=== PATIENT | female | born 1980 | race Caucasian/White ===

== ENCOUNTER 2023-06-12 10:18 | Outpatient (CLI) | payer OTHER ==
[2023-06-12 11:14] LABS: URINE APPEARANCE Clear; URINE BILIRRUBIN Negative (NEGATIVE); URINE BLOOD Negative; URINE COLOR Yellow; URINE GLUCOSE Negative (NEGATIVE); URINE LEUKOCYTE Negative; URINE NITRATE Negative; URINE PROTEIN Negative (NEGATIVE); URINE UROBILINOGEN 0.2 E.U./dl
[2023-06-12 11:15] LABS: URINE BACTERIA 428.3 uL (0.0-1933); URINE EPITHELIAL CELLS 14.5 uL (0.0-38.8); URINE RBC 5.1 uL (0.0-20.8); URINE WBC 14.6 uL (0.0-23.2)
[2023-06-12 11:33] LABS: ALBUMIN 3.5 gm/dL (3.4-5.0); BILIRUBIN TOTAL 0.23 mg/dL (0.3-1.2); CALCIUM 8.8 mg/dL (8.5-10.1); CREATININE SERUM 0.91 mg/dL (0.55-1.02); GFR 67.47; GLOBULINA 3.4 G/DL (2.4-3.5); POTASSIUM 4.23 mEq/L (3.5-5.1); TOTAL PROTEIN 6.9 gm/dL (6.4-8.2)
[2023-06-12 11:36] LABS: HEMATOCRIT 35.4 % (36.0-45.00); HEMOGLOBIN 11.5 g/dL (12.0-15.00); MEAN CELL VOLUME 75.8 fL (80.00-100.00); MEAN CORPUSCULAR HEMOGLOBIN 24.6 pg (27.00-32.0); MEAN CORPUSCULAR HGB CONC 32.5 g/dl (32.0-36.0); PLATELET COUNT 372 K/uL (150-450); RED BLOOD COUNT 4.67 M/uL (4.00-6.00)
[2023-06-12 12:14] LABS: CHOL HDL RATIO 5.2 (0-5.0); T4 TOTAL 5.02 UG/DL (4.8-13.9); TSH 2.23 uIU/mL (0.358-3.74)
[2023-06-12 12:34] LABS: RED CELL DISTRIBUTION WIDTH 29.9 % (11.5-14.5)
[2023-06-13 12:41] LABS: T3 TOTAL 0.915 ng/ml (0.846-2.02); VITAMIN D3 25 HYDROXY 20.54 ng/ml (30-120)
== END 2023-06-12 10:20 | disposition home or self-care (01) ==
LOC: LAB 10:18
DX: E03.9 Hypothyroidism, unspecified (principal); E55.9 Vitamin D deficiency, unspecified; D50.9 Iron deficiency anemia, unspecified; I11.9 Hypertensive heart disease without heart failure; E21.3 Hyperparathyroidism, unspecified; R19.5 Other fecal abnormalities; E11.65 Type 2 diabetes mellitus with hyperglycemia; E78.2 Mixed hyperlipidemia; R80.9 Proteinuria, unspecified; N39.0 Urinary tract infection, site not specified

== ENCOUNTER → 2023-06-14 11:33 | Outpatient (CLI) | payer OTHER ==
[2023-06-14 12:46] LABS: ob NEGATIVE (NEGATIVE)
== END | disposition home or self-care (01) ==
LOC: LAB 11:33
DX: E03.9 Hypothyroidism, unspecified (principal); E55.9 Vitamin D deficiency, unspecified; D50.9 Iron deficiency anemia, unspecified; I11.9 Hypertensive heart disease without heart failure; E21.3 Hyperparathyroidism, unspecified; R19.5 Other fecal abnormalities; E11.65 Type 2 diabetes mellitus with hyperglycemia; E78.2 Mixed hyperlipidemia; R80.9 Proteinuria, unspecified; N39.0 Urinary tract infection, site not specified

== ENCOUNTER 2023-06-14 12:12 | Outpatient (CLI) | payer OTHER | END 2023-06-14 12:17 | disposition home or self-care (01) | LOC: SONOGRAMA 12:12 | DX: N60.29 Fibroadenosis of unspecified breast (principal); Z12.31 Encounter for screening mammogram for malignant neoplasm of breast ==

== ENCOUNTER 2023-06-15 08:26 | Outpatient (CLI) | payer OTHER | END 2023-06-15 08:35 | disposition home or self-care (01) | LOC: SONOGRAMA 08:26 | DX: R10.9 Unspecified abdominal pain (principal); R10.2 Pelvic and perineal pain ==

== ENCOUNTER 2024-12-12 13:40 | Outpatient (CLI) | payer OTHER | END 2024-12-12 13:46 | disposition home or self-care (01) | LOC: SONOGRAMA 13:40 | DX: K76.0 Fatty (change of) liver, not elsewhere classified (principal); K80.00 Calculus of gallbladder with acute cholecystitis without obstruction ==

== ENCOUNTER 2025-03-28 13:45 | Outpatient (CLI) | payer OTHER | END 2025-03-28 13:50 | disposition home or self-care (01) | LOC: MAMO-SONO 13:45 | PROVIDERS: ATTEND Student in an Organized Health Care Education/Training Program | DX: N60.29 Fibroadenosis of unspecified breast (principal); Z12.31 Encounter for screening mammogram for malignant neoplasm of breast ==